=== PATIENT | male | born 1970 | race Caucasian/White ===

== ENCOUNTER 2019-01-20 09:52 | Emergency (ER) | payer MEDICAID ==
--- NOTE | 2019-01-20 10:04 | EDPHY ---
H & P Stated Complaint: Pt brushed varicosed R lower leg on stick, began bleeding from "pinhole". Time Seen by Provider: 01/20/19 10:03 - Personal History Current Tetanus/Diphtheria Vaccine: Yes - Medical/Surgical History Hx Asthma: No Hx Chronic Respiratory Disease: No Hx Diabetes: No Hx Cardiac Disease: No Hx Renal Disease: No Hx Cirrhosis: No Hx Alcoholism: No Hx HIV/AIDS: No Hx Splenectomy or Spleen Trauma: No Other PMH: Varicose veins, hernia repair, - Social History Smoking Status: Former smoker Constitutional: Initial Vital Signs Temperature (C) 36.4 C 01/20/19 09:56 Heart Rate 96 01/20/19 09:56 Respiratory Rate 18 01/20/19 09:56 Blood Pressure 127/87 H 01/20/19 09:56 O2 Sat (%) 94 01/20/19 09:56 O2 Delivery Mode Room Air Allergies/Adverse Reactions: Penicillins Allergy (Unknown, Verified 01/20/19 09:56) Home Medications: Medication Instructions Recorded Dextroamphetamine Sulfate 10 mg PO TID #42 capsule.er 09/05/11 [Dexedrine Spansule] Amphet Asp and D/Amphet [Adderall] 65 mg PO DAILY 07/07/13 Medical Decision Making ED Course/Re-evaluation: CHIEF COMPLAINT: Ruptured varicose vein HISTORY OF PRESENT ILLNESS: The patient is a 48 y/o male with a history of varicose veins complaining of a varicose vein that won't stop bleeding. 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 As the bleeding wouldn't stop he decided to present to the emergency department. No fever, headache, body aches, lightheadedness, chest pain, heart palpitations, shortness of breath, cough, abdominal pain, urinary or bowel complaints, numbness, paresthesias. REVIEW OF SYSTEMS: A comprehensive 10 system review of systems is otherwise negative aside from elements mentioned in the history of present illness and medical decision making. PHYSICAL EXAM: HR, BP, O2 Sat, RR. Temp noted General Appearance: Alert, well hydrated, appropriate, and non-toxic appearing. Head: Atraumatic without scalp tenderness or obvious injury Eyes: Pupils equal, round, reactive to light and accommodation, EOMI, no trauma , no injection. Ears: Clear bilaterally, no perforation, normal landmarks Nose: Atraumatic, no rhinorrhea, clear. Throat: There is no erythema or exudates, no lesions, normal tonsils, mucus membranes moist. Neck: Supple, 2+ carotid upstroke, nontender, no lymphadenopathy. Respiratory: No retractions, no distress, no wheezes, and no accessory muscle use. Lungs are clear to auscultation bilaterally. Cardiovascular: Regular rate and rhythm, no murmurs, rubs, or gallops. Bilateral carotid, radial, dorsalis pedis, and posterior tibial pulses intact. Good capillary refill all extremities. Gastrointestinal: Abdomen is soft, nontender, non-distended, no masses, no rebound, no guarding, no peritoneal signs. Musculoskeletal: Normal active ROM of all extremities, atraumatic. Neurological: Alert, appropriate, and interactive. The patient has normal DTRs and non-focal cranial nerves, motor, sensory, and cerebellar exam. Skin: Ruptured varicosity on right lower calf, chronic venous stasis changes. No rashes, good turgor, no nodules on palpation. Past medical history: Varicose veins Past surgical history: Hernia repair Family history: Denies Social history: Lives in [place], works on a farm DIAGNOSTICS/PROCEDURES/CRITICAL CARE TIME: Not indicated. DIFFERENTIAL DIAGNOSIS: The differential diagnosis for the patient's lower leg injury included but was not limited to varicosity rupture, chronic venous stasis changes, contusion, hematoma, cellulitis, MEDICAL DECISION MAKING: The patient is a 48 y/o male with a history of varicose veins complaining of a varicose vein that won't stop bleeding today. On exam he has a Ruptured varicosity on right lower calf and chronic venous stasis changes. The varicosity has stopped bleeding, but we will apply Surgicel to the site. I have also advised him to follow up with Dr. Kelly (general surgeon) or Dr. Davis ( interventional radiologist) regarding having varicose vein surgery. I have also advised him to follow up with a PCP as he has not had a general physical check up in "years". Return precautions provided; patient is comfortable with this plan. Departure - Departure Disposition: Home, Routine, Self-Care Clinical Impression: Ruptured varicose vein, Venous stasis of lower extremity Condition: Fair Instructions: Venous Insufficiency (DC) Additional Instructions: 1. Follow up with Dr. eKlly or Dr. Davis regarding varicose vein surgery. 2. Follow-up with your primary doctor within 72 hours. 3. Apply pressure for 20 minutes if it starts bleeding again. 4. Return to the Emergency Department for fever, redness, discharge from wound, increasing pain or other worsening of condition. Referrals: Lizzie Davis MD [Medical Doctor] - As per Instructions Arie Kelly MD [Medical Doctor] - As per Instructions [facility] [Clinic] - As per Instructions Jazmine Page MD [Medical Doctor] - As per Instructions Report Scribed for: Medardo Galvin Report Scribed by: Ailyn Pelayo Date of Report: 01/20/19 Time of Report: 10:05
[2019-01-20 10:48] VITALS: BP 131/88
== END 2019-01-20 11:11 | disposition home or self-care (01) ==
DX: S85.901A Unspecified injury of unspecified blood vessel at lower leg level, right leg, initial encounter (principal); W22.8XXA Striking against or struck by other objects, initial encounter; Y93.H2 Activity, gardening and landscaping; Y92.73 Farm field as the place of occurrence of the external cause